=== PATIENT | female | born 1940 | race Caucasian/White ===

== ENCOUNTER 2017-02-06 14:31 | Inpatient (IN) | payer MEDICAID, MEDICARE ==
[~2017-02-06] VITALS: Ht 165.1 cm; Wt 66.4 kg
[2017-02-06 18:31] LABS: CLARITY URINE CLEAR (CLEAR); COLOR URINE YELLOW (YELLOW); GLUCOSE URINE NEGATIVE (NEGATIVE); KETONES URINE 2+ (NEGATIVE); LEUKOCYTE ESTERASE URINE NEGATIVE (NEGATIVE); NITRITE URINE NEGATIVE (NEGATIVE); OCCULT BLOOD URINE NEGATIVE (NEGATIVE); PH URINE 7.5 (4.5-8.0); PROTEIN URINE NEGATIVE (NEGATIVE); SPECIFIC GRAVITY URINE 1.018 (1.005-1.030); UROBILINOGEN URINE 0.2 E.U./dL (0.2-1.0)
[2017-02-06 18:31] LABS: BASOPHILS % 0.8 % (0.0-2.0); EOSINOPHILS % 0.1 % (0.0-5.0); HEMATOCRIT. 36.9 % (36.0-48.0); HEMOGLOBIN. 12.3 g/dL (12.0-16.0); LYMPHOCYTES % 13.2 % (20.0-50.0); MEAN CORPUSCULAR HEMOGLOBIN 29.2 pg (28.0-32.0); MEAN CORPUSCULAR VOLUME 87.3 fL (81.0-99.0); MEAN PLATELET VOLUME 9.1 fl (7.4-10.4); MONOCYTES % 2.4 % (2.0-8.0); NEUTROPHILS % 83.5 % (40.0-76.0); PLATELET 189 x1000/uL (130-400); RED BLOOD CELL COUNT 4.23 mill/uL (4.2-5.4); RED CELL DISTRIBUTION WIDTH 14.5 % (11.6-14.6)
[2017-02-06 18:35] LABS: INR 1.1; PROTHROMBIN TIME 11.2 sec (9.4-11.6)
[2017-02-06 18:43] LABS: CARBON DIOXIDE 24 mEq/L (21-32); CHLORIDE 104 mEq/L (98-107)
[2017-02-06 18:43] LABS: *AMPHETAMINES SCREEN URINE NEGATIVE (NEGATIVE); *BARBITURATES SCREEN URINE NEGATIVE (NEGATIVE); *BENZODIAZEPINES SCREEN URINE NEGATIVE (NEGATIVE); *COCAINE SCREEN URINE NEGATIVE (NEGATIVE); CANNABINOID URINE SCREEN NEGATIVE (NEGATIVE); METHADONE URINE SCREEN NEGATIVE (NEGATIVE); OPIATES URINE SCREEN NEGATIVE (NEGATIVE); PHENCYCLIDINE URINE SCREEN NEGATIVE (NEGATIVE)
[2017-02-06 18:45] LABS: TROPONIN I < 0.02 ng/mL (0.00-0.04)
[2017-02-06] MEDS ORDERED: CLONIDINE 0.1MG TABLET PO ONE (19:00)
[2017-02-06] MEDS ORDERED: LOSARTAN POTASSIUM 25 MG TABLET PO ONE (19:00)
[2017-02-06 23:15] VITALS: BP 167/79
[2017-02-07 00:23] VITALS: BP 167/79
[2017-02-07] MEDS ORDERED: IPRATROPIUM/ALBUTEROL 0.5-3(2.5)MG/3ML NEB INH PRN (01:00)
[2017-02-07] MEDS ORDERED: CLONIDINE 0.1MG TABLET PO PRN (01:00)
[2017-02-07] MEDS ORDERED: HYDROCODONE/ACETAMINOPHEN 5/325MG TABLET PO PRN (01:00)
[2017-02-07] MEDS ORDERED: DOCUSATE SODIUM 100MG CAPSULE PO PRN (01:00)
[2017-02-07] MEDS ORDERED: MORPHINE SULFATE 4 MG/ML CPJ (NOT FOR IM USE) IV PRN (01:00)
[2017-02-07] MEDS ORDERED: ONDANSETRON HCL 4MG/2ML VIAL IV PRN (01:00)
[2017-02-07] MEDS ORDERED: MAGNESIUM/ALUMINUM HYDROXIDE/SIMETHICONE 30ML UDC PO PRN (01:00)
[2017-02-07] MEDS ORDERED: ACETAMINOPHEN 325MG TABLET PO PRN (01:00)
[2017-02-07] MEDS ORDERED: DEXTROSE 50% WATER 50ML SYRINGE IV PRN (01:30)
[2017-02-07 04:00] VITALS: BP 143/72
[2017-02-07] MEDS: BLOOD SUGAR DIAGNOSTIC STRIP TEST SCH ×4 (06:23→21:33)
[2017-02-07] MEDS: INSULIN LISPRO 100 UNITS/ML SUBCUT SCH ×4 (07:50→21:00)
[2017-02-07 08:00] VITALS: BP 171/69
[2017-02-07] MEDS: ENOXAPARIN 40MG/0.4ML SYR SUBCUT SCH (09:00)
[2017-02-07] MEDS: AMLODIPINE 10MG TABLET PO SCH (09:00)
[2017-02-07] MEDS: METOPROLOL TARTRATE 25MG TABLET PO SCH ×2 (09:00→21:36)
[2017-02-07] MEDS: ASPIRIN 81MG EC TABLET PO SCH (09:00)
[2017-02-07] MEDS ORDERED: PNEUMOCOCCAL 23-VAL P-SAC VAC 0.5 ML IM ONE (10:00)
[2017-02-07 12:00] VITALS: BP 141/67
[2017-02-07 16:00] VITALS: BP 124/79
[2017-02-07 20:52] VITALS: BP 118/71
[2017-02-08 00:25] VITALS: BP 129/75
[2017-02-08 04:16] VITALS: BP 137/67
[2017-02-08] MEDS: BLOOD SUGAR DIAGNOSTIC STRIP TEST SCH ×2 (06:53→12:20)
[2017-02-08 07:27] VITALS: BP 139/75
[2017-02-08] MEDS: INSULIN LISPRO 100 UNITS/ML SUBCUT SCH ×2 (07:50→12:50)
[2017-02-08 08:01] LABS: BASOPHILS % 0.6 % (0.0-2.0); EOSINOPHILS % 1.3 % (0.0-5.0); LYMPHOCYTES % 26.1 % (20.0-50.0); MEAN CORPUSCULAR HEMOGLOBIN 29.9 pg (28.0-32.0); MEAN CORPUSCULAR VOLUME 87.6 fL (81.0-99.0); MEAN PLATELET VOLUME 9.1 fl (7.4-10.4); MONOCYTES % 8.3 % (2.0-8.0); NEUTROPHILS % 63.7 % (40.0-76.0); PLATELET 185 x1000/uL (130-400); RED CELL DISTRIBUTION WIDTH 14.3 % (11.6-14.6)
[2017-02-08 08:27] LABS: CARBON DIOXIDE 24 mEq/L (21-32); CHLORIDE 107 mEq/L (98-107); HDL CHOLESTEROL 42 mg/dL (40-59); LDL CHOLESTEROL 78 mg/dL (5-100)
[2017-02-08] MEDS: AMLODIPINE 10MG TABLET PO SCH (09:11)
[2017-02-08] MEDS: ASPIRIN 81MG EC TABLET PO SCH (09:11)
[2017-02-08] MEDS: METOPROLOL TARTRATE 25MG TABLET PO SCH (09:12)
[2017-02-08] MEDS: ENOXAPARIN 40MG/0.4ML SYR SUBCUT SCH (09:13)
[2017-02-08 11:24] VITALS: BP 140/65
[2017-02-08] MEDS ORDERED: AMLO10TA4 PO (15:16)
[2017-02-08 15:19] VITALS: BP 138/67
[2017-02-08 15:20] VITALS: BP 126/62
== END 2017-02-08 16:10 | disposition home or self-care (01) | DRG 199 ==
LOC: ER 14:45 → 6WST 18:54 → ENRESERV 22:13 → EDBEDREQ 22:40
PROVIDERS: ADMIT Hospitalist; ATTEND Hospitalist
DX: I16.0 Hypertensive urgency (principal); N17.0 Acute kidney failure with tubular necrosis; E11.65 Type 2 diabetes mellitus with hyperglycemia; N28.1 Cyst of kidney, acquired; K57.90 Diverticulosis of intestine, part unspecified, without perforation or abscess without bleeding; Z90.49 Acquired absence of other specified parts of digestive tract; Z90.710 Acquired absence of both cervix and uterus
CPT/HCPCS: 36415; 71010; 74176; 80053; 80061; 80305; 81003; 82962; 83036; 83690; 83880; 84443; 84484; 85025; 85610; 85651; 90732; 93005; 93970; 99285; J1650; J1815; J7050